=== PATIENT | female | born 1965 | race Caucasian/White ===

== ENCOUNTER 2021-03-14 11:49 | Inpatient (IN) | payer MEDICARE, MEDICAID ==
[~2021-03-14] VITALS: Ht 170.2 cm; Wt 95.3 kg
[2021-03-14 11:51] VITALS: BP 104/74
[2021-03-14] MEDS ORDERED: DRIZALMA SPRINK60 MG PO (11:56)
[2021-03-14 13:39] LABS: ABSOLUTE LYMPHOCYTES 0.6 thou/uL (0.8-5.3); ABSOLUTE MONOCYTES 0.1 thou/uL (0.0-1.2); ABSOLUTE NEUTROPHILS 4.1 thou/uL (1.6-8.1); BASOPHILS 0.6 %; EOSINOPHILS 0.5 %; HEMATOCRIT 35.3 % (37.0-47.0); HEMOGLOBIN 11.6 gm/dL (12.0-15.0); LYMPHOCYTES 11.9 %; MCH 28.1 pg (26.0-34.0); MCHC 32.9 g/dL (28.0-37.0); MCV 85.3 fL (80.0-100.0); MPV 8.4 fl. (7.2-11.1); NUCLEATED RBCS 0 /100WBC; PLATELET COUNT* 193 thou/uL (150-400); RBC 4.14 mil/uL (4.20-5.00); RDW-CV 14.7 % (10.5-14.5); WBC 4.9 thou/uL (4.0-11.0)
[2021-03-14 13:41] LABS: CALCIUM 7.7 mg/dL (8.5-10.1); CREATININE 0.9 mg/dL (0.6-1.3); POTASSIUM 3.9 mmol/L (3.5-5.1)
[2021-03-14 13:50] LABS: TOTAL BILIRUBIN 1.1 mg/dL (<0.1-1.0); TOTAL PROTEIN 6.9 g/dL (6.4-8.2)
[2021-03-14 17:53] LABS: URINE BILIRUBIN NEGATIVE (Negative); URINE BLOOD 1+ (Negative); URINE CLARITY CLEAR; URINE COLOR YELLOW; URINE GLUCOSE-RANDOM NEGATIVE (Negative); URINE KETONES NEGATIVE (Negative); URINE LEUKOCYTES-REFLEX NEGATIVE (Negative); URINE NITRITE-REFLEX NEGATIVE (Negative); URINE PROTEIN TRACE (Negative); URINE SPECIFIC GRAVITY <= 1.005 (1.005-1.030); URINE UROBILINOGEN 0.2 E.U./dl (0.2-1.0)
[2021-03-14 18:06] LABS: CASTS None Seen /LPF (None Seen); CRYSTALS None Seen /LPF (None Seen); MUCUS None Seen strn/LPF (None Seen); SQUAMOUS >10 Many /LPF (0-3); URINE RBC 0-2 Rare /HPF (0-2)
[2021-03-14 18:07] LABS: BACTERIA-REFLEX None Seen /HPF (None Seen); URINE WBC-REFLEX None Seen /HPF (0-5)
[2021-03-14 20:02] VITALS: BP 114/71
[2021-03-15 00:05] VITALS: BP 127/60
[2021-03-15 04:00] VITALS: BP 128/72
[2021-03-15 05:02] LABS: CALCIUM 7.8 mg/dL (8.5-10.1); CREATININE 0.9 mg/dL (0.6-1.3); PHOSPHORUS* 2.6 mg/dL (2.5-4.9); POTASSIUM 4.2 mmol/L (3.5-5.1)
[2021-03-15 08:00] VITALS: BP 130/76
[2021-03-15 12:03] LABS: % SATURATION 10 % (20-39); IRON 23 ug/dL (50-175)
--- NOTE | 2021-03-15 16:13 | CON ---
[address] [address] CONSULTATION Name: LUIS E ROJO Room: [place] [address] ADM IN M.R.#: [id number] Admission: 03/14/21 Attend Phys: Chika Branch Discharge: Date of : 69 Report #: [id number] THIS REPORT FOR: cc: [facility] - Clinic physician unknown [facility] - Clinic physician unknown Nguyen Varghese MD ~ cc: PCP, [facility] DATE OF CONSULTATION: 03/15/2021 Please note at the time of this dictation, the patient was seen and physically examined by myself. REASON FOR CONSULTATION: Nausea, vomiting and elevated LFTs. HISTORY OF PRESENT ILLNESS: This is a 55-year-old female who presented to the Emergency Room with nausea, vomiting and some diarrhea. She states she has been sick since 03/04/2021. 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 She states she is having a cough, headache, nausea, vomiting, diarrhea. She feels very weak and has a lot of body aches. She has noticed a change in her taste and has noted some bleeding from her hemorrhoids. The patient has been taking ibuprofen, Tylenol, cold and flu medication without any relief of her symptoms. The patient did have a COVID vaccine first shot 2 weeks ago at that time. In talking with the patient, she states she had a colonoscopy done several years ago. She thinks it was done at [facility] but does not recall with who. She states in the past she has been told that her liver enzymes have been elevated, but no workup has been performed. The patient states she has a longstanding history of constipation. She states that she may go a week without going and that she has to take a bunch of laxatives to get herself to go. Currently, she states her nausea and vomiting have subsided. She denied any bright red blood or coffee-ground emesis with her vomitus. ALLERGIES: No known drug allergies. MEDICATIONS: From home include duloxetine. PAST MEDICAL HISTORY: Hemorrhoids and elevated liver function test. PAST SURGICAL HISTORY: None. FAMILY HISTORY: Negative for any GI or female cancers. SOCIAL HISTORY: The patient does admit to heavy alcohol use up until 12 years ago, mainly hard liquor. She cannot give me a quantity of [place] [address] CONSULTATION Name: LUIS E ROJO Room: [address] IN [facility]#: [id number] Admission: 03/14/21 Attend Phys: Chika Branch Discharge: Date of : 69 Report #: [id number] She does do vaping and cigarettes about a pack a day. Denies any illegal drug use. REVIEW OF SYSTEMS: Twelve point review of systems is essentially negative except what is mentioned in the HPI. PHYSICAL EXAMINATION: VITAL SIGNS: Pulse 87, respirations 20, blood pressure 104/74, O2 sat 96. HEART: Regular rate and rhythm. LUNGS: Diminished bilaterally with crackles. ABDOMEN: Soft, positive bowel sounds in all 4 quadrants with generalized tenderness throughout and she does have somewhat of a distended abdomen, which she states is normal for her. LABORATORY DATA: Hemoglobin is 11.6, white count is 4.9, platelets 193. GFR is 65, total bilirubin is 1.1, alkaline phosphatase 77, ALT 1882, AST is 2483. Lipase is normal at 212. COVID is negative. CT of the abdomen and pelvis just shows hepatic steatosis, cholelithiasis and constipation. Also noted are bilateral ground ground-glass pneumonia. IMPRESSION: 1. Elevated liver function tests. 2. Nausea and vomiting, resolved. 3. Constipation. 4. Hepatic steatosis. 5. Anemia, mild. 6. Previous history of alcohol abuse, quit 12 years ago. 7. Pneumonia bilaterally. PLAN: 1. We will check labs, acute hepatitis panel, alpha 1 antitrypsin, AFP, ceruloplasmin, GARRY, AMA, ASMA, B12, iron studies, ferritin. 2. Obtain an abdominal ultrasound. 3. Depending on the results of the above, the patient may need a liver biopsy for definitive evaluation of her liver. Further recommendations to be made after Dr. Varghese sees the patient later today. Thank you for allowing us to participate in this patient's care. Please do not hesitate to call if there are any questions regarding this. <ELECTRONICALLY SIGNED> By: Nguyen Varghese MD 03/15/21 1613 0801 [id number] Varghese MD /nt
[2021-03-15 16:45] VITALS: BP 132/85
[2021-03-15 22:39] VITALS: BP 132/85
[2021-03-15 22:52] VITALS: BP 125/74
[2021-03-16 00:41] VITALS: BP 124/83
[2021-03-16 02:06] LABS: HEPATITIS B SURFACE AG Negative (Negative)
--- NOTE | 2021-03-16 02:44 | NUR ---
ASSUMED CARE OF PT AT 2245. PT IS ALERT AND OREINTED. VSS. PERRLA. NO COMPLAINTS OF PAIN. PT IS ON ROOM AIR. PT IS IN SINUS RYTHM ON THE TELEMETRY. PT IS RESTING COMFORTABLY IN BED. RESPIRATIONS ARE EVEN AND NONLABORED. WILL CONTINUE TO MONITOR PT.
[2021-03-16 04:25] VITALS: BP 127/89
[2021-03-16 07:20] VITALS: BP 122/73
[2021-03-16 09:08] LABS: CERULOPLASMIN 29.7 mg/dL (19.0-39.0)
[2021-03-16 12:44] LABS: ALBUMIN 2.6 g/dL (3.4-5.0); CALCIUM 7.9 mg/dL (8.5-10.1); CREATININE 0.9 mg/dL (0.6-1.3); POTASSIUM 4.9 mmol/L (3.5-5.1); TOTAL BILIRUBIN 0.7 mg/dL (<0.1-1.0); TOTAL PROTEIN 6.1 g/dL (6.4-8.2)
[2021-03-16 12:45] VITALS: BP 116/68
[2021-03-16 16:22] VITALS: BP 125/79
--- NOTE | 2021-03-16 16:48 | NUR ---
PT REMAINED ALERT AND ORIENTED. PT RESTING IN BED. ANXIETY MEDS GIVEN ORDERED. FALL RISK PRECAUTIONS IN PLACE. HOURLY ROUNDING COMPLETED. HEART MONITORED. CALL LIGHT WITHIN REACH.
[2021-03-16 19:45] VITALS: BP 112/65
--- NOTE | 2021-03-16 23:45 | NUR ---
ASSUMED CARE OF PT AT 1900. PT IS ALERT AND ORIENTED. VSS. PERRLA. NO COMPLAINTS OF PAIN. PT IS IN SINUS RYTHM ON THE TELEMETRY. PT IS RESTING COMFORTABLY IN BED. RESPIRATIONS ARE EVEN AND NONLABORED. WILL CONTINUE TO MONITOR PT.
[2021-03-17 00:10] VITALS: BP 134/64
[2021-03-17 04:35] VITALS: BP 137/72
--- NOTE | 2021-03-17 05:26 | NUR ---
PATIENT HAS SLEPT OFF AND ON DURING THE NIGHT, BUT RESTLESS AT TIMES. 02 INCREASED TO 4L VIA NASAL CANNULA D/T DECREASED OXYGEN SATURATION D/T PATIENT TAKING OFF HER OXYGEN. MEDICATIONS GIVEN ORDERED AND CHARTED. PATIENT INSTRUCTED TO USE CALL LIGHT WHEN NEEDING ASSISTANCE. HOURLY ROUNDS MADE. WILL CONTINUE WITH PLAN OF CARE AND NURSING TO MONITOR.
[2021-03-17 06:18] LABS: ALBUMIN 2.5 g/dL (3.4-5.0); CALCIUM 7.9 mg/dL (8.5-10.1); CREATININE 0.8 mg/dL (0.6-1.3); POTASSIUM 3.9 mmol/L (3.5-5.1); TOTAL BILIRUBIN 0.6 mg/dL (<0.1-1.0); TOTAL PROTEIN 5.7 g/dL (6.4-8.2)
[2021-03-17 08:30] VITALS: BP 114/81
--- NOTE | 2021-03-17 17:19 | NUR ---
PATIENT HAS BEEN A&OX4 HOWEVER CONFUSED AT TIMES DURING THIS SHIFT. PATIENT HAS BEEN FATIGUED AND SLEPT MOST OF SHIFT AND SEEMS TO BE CONFUSED RIGHT WHEN BEING WAKEN UP. PATIENT REQUIRED PRN ANXIETY MEDICATION X1 THIS SHIFT PER HER REQUEST, WHICH WAS AFFECTIVE. PATIENT IS ON O2@4L NASAL CANNULA AND SOMETIMES REQUIRES NEEDING REMINDED TO LEAVE CANNULA IN NOSE. PATIENT RECEIVED FIRST DOSE OF REMDESEVIR TODAY AND WAS CONSULTED BY DR. MARTINEZ (PULMONOLOGY). MEDICATIONS ADMINISTERED ORDERED. BED ALARM ON FOR PATIENT SAFETY. CALL LIGHT AND FREQUENTLY USED ITEMS WITHIN REACH.
[2021-03-17 19:30] VITALS: BP 113/68
[2021-03-17 19:43] VITALS: BP 138/80
[2021-03-18 02:34] VITALS: BP 121/77
--- NOTE | 2021-03-18 03:56 | NUR ---
PT SLEPT ON AND OFF THIS SHIFT. ASSESSMENT DOCUMENTED. MEDS GIVEN PER E-MAR. IV PATENT. NO REPORTS OF PAIN. PT HAD INCREASE IN CONFUSION THIS SHIFT, CLIMBING OUT OF BED, FORGETTING TO HIT CALL LIGHT. PT REORIENTED, FALL PRECAUTIONS IN PLACE. PT UP TO BSC SEVERAL TIMES THIS SHIFT. WILL CONTINUE WITH PLAN OF CARE.
[2021-03-18 04:57] VITALS: BP 138/67
[2021-03-18 08:00] VITALS: BP 108/67
--- NOTE | 2021-03-18 15:24 | NUR ---
Covid positive. Pt on 2L o2. GI following for EGD, possible colon. ?withdrawing. Pt confused, CM left VM for Pt's son to obtain hx, awaiting call back. Per chart review, Pt is normally A&O. Independent. CM to continue to try and reach son regarding history.
[2021-03-18 20:30] VITALS: BP 133/66
[2021-03-18 21:05] LABS: ANA INTERPRETATION Negative (())
[2021-03-19] VITALS: BP 114/65
[2021-03-19 04:00] VITALS: BP 104/56
--- NOTE | 2021-03-19 06:05 | NUR ---
PT SLEPT MOST OF SHIFT. ASSESSMENT DOCUMENTED. MEDS GIVEN PER E-MAR. IV PATENT. PT STILL FORGETFUL AND CLIMBS OUT OF BED, BUT IS EASIER TO REDIRECT THIS SHIFT. NO REPORTS OF PAIN. ISOLATION MAINTIANED. WILL CONTINUE WITH PLAN OF CARE.
[2021-03-19 07:54] LABS: HEMATOCRIT 32.6 % (37.0-47.0); HEMOGLOBIN 10.6 gm/dL (12.0-15.0); MCH 27.8 pg (26.0-34.0); MCHC 32.5 g/dL (28.0-37.0); MCV 85.6 fL (80.0-100.0); MPV 8.2 fl. (7.2-11.1); NUCLEATED RBCS 0 /100WBC; PLATELET COUNT* 282 thou/uL (150-400); RBC 3.81 mil/uL (4.20-5.00); RDW-CV 15.2 % (10.5-14.5); WBC 5.9 thou/uL (4.0-11.0)
[2021-03-19 08:12] LABS: ALBUMIN 2.7 g/dL (3.4-5.0); CALCIUM 7.9 mg/dL (8.5-10.1); CREATININE 0.7 mg/dL (0.6-1.3); POTASSIUM 3.3 mmol/L (3.5-5.1); TOTAL BILIRUBIN 0.6 mg/dL (<0.1-1.0); TOTAL PROTEIN 6.2 g/dL (6.4-8.2)
[2021-03-19 08:30] VITALS: BP 141/71
[2021-03-19 08:38] LABS: PHOSPHORUS* 4.2 mg/dL (2.5-4.9)
[2021-03-19 08:41] LABS: APTT 23.9 Seconds (25.0-31.3); PROTIME 11.1 Seconds (9.20-11.50)
[2021-03-19 09:12] LABS: ABSOLUTE EOSINOPHILS 0.1 thou/uL (0.0-0.7); ABSOLUTE LYMPHOCYTES 1.2 thou/uL (0.8-5.3); ABSOLUTE MONOCYTES 0.5 thou/uL (0.0-1.2); ANISOCYTOSIS 1+; PLATELET ESTIMATE ADEQUATE; POIKILOCYTOSIS 1+
[2021-03-19 11:58] VITALS: BP 141/73
--- NOTE | 2021-03-19 15:09 | NUR ---
Anticipate dc in a few days. On 3L. Confused. GI w/up pending.
[2021-03-19 15:49] VITALS: BP 140/80
--- NOTE | 2021-03-19 16:36 | 2DMMODE ---
[place] [address] 2 D/M-MODE ECHOCARDIOGRAM Name: LUIS E ROJO Osorio Room: [address] IN .R.#: [id number] Admission: 03/14/21 Attend Phys: Keegan Olivera Discharge: Date of : 69 Date of Service: 03/19/21 1636 Report #: [id number] THIS REPORT FOR: cc: [facility] - Clinic physician unknown [facility] - Clinic physician unknown Yoel Machado MD [facility] ~ APPROVED REPORT Study performed: 03/19/2021 10:45:44 EXAM: Comprehensive 2D, Doppler, and color-flow Echocardiogram Patient Location: In-Patient Room #: [facility] Status: routine BSA: 2.07 HR: 71 bpm BP: 104/56 mmHg Rhythm: NSR Other Information Study Quality: Good Indications Dyspnea 2D Dimensions IVSd: 10.41 (7-11mm) LVOT Diam: 20.58 (18-24mm) LVDd: 41.98 mm PWd: 8.50 (7-11mm) Ascending Ao: 33.08 (22-36mm) LVDs: 27.66 (25-40mm) Aortic Root: 31.97 mm Aortic Valve AoV Peak Wilian.: 1.45 m/s AO Peak Gr.: 8.46 mmHg LVOT Max P.29 mmHg AO Mean Gr.: 5.26 mmHg LVOT Mean P.96 mmHg LVOT Max V: 1.25 m/s AO V2 VTI: 28.72 cm LVOT Mean V: 0.95 m/s ADRIÁN (VTI): 2.85 cm2 LVOT V1 VTI: 24.61 cm Mitral Valve E/A Ratio: 0.90 MV Decel. Time: 232.06 ms MV E Max Wilian.: 1.03 m/[place] [address] 2 D/M-MODE ECHOCARDIOGRAM Name: LUIS E ROJO Room: [address] IN .R.#: [id number] Admission: 03/14/21 Attend Phys: Keegan Olivera Discharge: Date of : 69 Date of Service: 03/19/21 1636 Report #: [id number] MV PHT: 67.30 ms MVA (PHT): 3.27 cm2 TDI E/Lateral E': 12.88 E/Medial E': 11.44 Medial E' Wilian.: 0.09 m/s Lateral E' Wilian.: 0.08 m/s Pulmonary Valve PV Peak Wilian.: 1.60 m/s PV Peak Gr.: 10.25 mmHg Tricuspid Valve RAP Estimate: 5.00 mmHg TR Peak Gr.: 28.66 mmHg RVSP: 33.00 mmHg PA Pressure: 33.00 mmHg Left Ventricle The left ventricle is normal size. There is normal LV segmental wall motion. There is normal left ventricular wall thickness. Left ventricular systolic function is normal. LVEF is 55-60%. Grade I - abnormal relaxation pattern. Right Ventricle The right ventricle is normal size. The right ventricular systolic function is normal. Atria The left atrium size is normal. The right atrium size is normal. Aortic Valve Mild aortic valve sclerosis. No aortic regurgitation is present. There is no aortic valvular stenosis. Mitral Valve The mitral valve is normal in structure. There is no mitral valve regurgitation noted. No evidence of mitral valve stenosis. Tricuspid Valve The tricuspid valve is normal in structure. Trace tricuspid regurgitation. The RVSP is 35-40 mmHg. Pulmonic Valve The pulmonary valve is normal in structure. There is no pulmonic [place]vular [place] [address] 2 D/M-MODE ECHOCARDIOGRAM Name: LUIS E ROJO Room: [address] IN [facility]#: [id number] Admission: 03/14/21 Attend Phys: Keegan Olivera Discharge: Date of : 69 Date of Service: 03/19/21 1636 Report #: [id number] Great Vessels The aortic root is normal in size. IVC is normal in size and collapses >50% with inspiration. Pericardium There is no pericardial effusion. <Conclusion> The left ventricle is normal size. There is normal left ventricular wall thickness. Left ventricular systolic function is normal. LVEF is 55-60%. Grade I - abnormal relaxation pattern. Mild aortic valve sclerosis. Trace tricuspid regurgitation. The RVSP is 35-40 mmHg. IVC is normal in size and collapses >50% with inspiration. <ELECTRONICALLY SIGNED> By: Yoel Machado MD, FACC 03/19/21 1636 1636 1636 Yoel Machado MD, FACC /INF
[2021-03-19 20:00] VITALS: BP 135/73
[2021-03-20 00:27] VITALS: BP 134/72
--- NOTE | 2021-03-20 03:53 | NUR ---
PT SLEPT MOST OF SHIFT. ASSESSMENT DOCUMENTED. MEDS GIVEN PER E-MAR. IV PATENT. PAIN AND NAUSEA MEDS GIVEN PER E-MAR WITH RELIEF. PT HAD PERIODS OF CLARITY, BUT THEN WOULD GET CONFUSED AGAIN AND START CLIMBING OUT OF BED. PT ABLE TO TALK TO FAMILY THIS SHIFT. FALL PRECAUTIONS IN PLACE. WILL CONTINUE WITH PLAN OF CARE.
[2021-03-20 04:11] VITALS: BP 129/58
[2021-03-20 06:06] LABS: ABSOLUTE EOSINOPHILS 0.1 thou/uL (0.0-0.7); ABSOLUTE MONOCYTES 0.6 thou/uL (0.0-1.2); ABSOLUTE NEUTROPHILS 4.5 thou/uL (1.6-8.1); BASOPHILS 0.3 %; EOSINOPHILS 1.3 %; HEMATOCRIT 30.9 % (37.0-47.0); HEMOGLOBIN 10.2 gm/dL (12.0-15.0); LYMPHOCYTES 15.4 %; MCH 28.2 pg (26.0-34.0); MCV 85.4 fL (80.0-100.0); MONOCYTES 10.3 %; MPV 7.8 fl. (7.2-11.1); NUCLEATED RBCS 0 /100WBC; PLATELET COUNT* 292 thou/uL (150-400); POLYS 72.7 %; RBC 3.62 mil/uL (4.20-5.00); RDW-CV 15.1 % (10.5-14.5); WBC 6.2 thou/uL (4.0-11.0)
[2021-03-20 06:23] LABS: ALBUMIN 2.7 g/dL (3.4-5.0); CALCIUM 7.9 mg/dL (8.5-10.1); CREATININE 0.7 mg/dL (0.6-1.3); POTASSIUM 3.1 mmol/L (3.5-5.1); TOTAL BILIRUBIN 0.7 mg/dL (<0.1-1.0); TOTAL PROTEIN 6.2 g/dL (6.4-8.2)
[2021-03-20 08:15] VITALS: BP 107/63
[2021-03-20 11:08] LABS: HCV QUANT BY PCR HCV Not Detected IU/mL (())
[2021-03-20 12:00] VITALS: BP 117/80
--- NOTE | 2021-03-20 15:56 | NUR ---
Pt down to 1L. Continues to have confusion. Started Seroquel. Anticipate dc tomorrow.
[2021-03-20 16:21] VITALS: BP 121/79
--- NOTE | 2021-03-20 19:09 | NUR ---
PATIENT RESTING IN BED. PATIENT IS UP STANDBY ASSIST. PATIENT HAS BEEN IMPULSIVE, BED ALARM ON. PATIENT ANXIOUS TODAY, ATIVAN GIVEN. PATIENT HAS BEEN CONFUSED AT TIMES, BUT COOPERATIVE AND ABLE TO BE REORIENTED. PATIENT DENIES ANY PAIN. PATIENT HAS OXYGEN ON AT 1L/NC, DOES DESAT ON ROOM AIR. PATIENT HAD POTASSIUM REPLACED PER PROTOCOL. PATIENT DENIES ANY NEEDS AT THIS TIME. CALL LIGHT WITHIN REACH.
[2021-03-20 20:24] VITALS: BP 105/69
[2021-03-21 01:19] VITALS: BP 102/60
[2021-03-21 05:06] LABS: ABSOLUTE EOSINOPHILS 0.1 thou/uL (0.0-0.7); ABSOLUTE LYMPHOCYTES 1.1 thou/uL (0.8-5.3); ABSOLUTE MONOCYTES 0.6 thou/uL (0.0-1.2); ABSOLUTE NEUTROPHILS 4.8 thou/uL (1.6-8.1); BASOPHILS 0.2 %; EOSINOPHILS 1.2 %; HEMATOCRIT 33.8 % (37.0-47.0); HEMOGLOBIN 10.9 gm/dL (12.0-15.0); LYMPHOCYTES 16.7 %; MCH 27.8 pg (26.0-34.0); MCHC 32.3 g/dL (28.0-37.0); MONOCYTES 9.2 %; MPV 7.8 fl. (7.2-11.1); NUCLEATED RBCS 0 /100WBC; PLATELET COUNT* 344 thou/uL (150-400); POLYS 72.7 %; RBC 3.93 mil/uL (4.20-5.00); RDW-CV 15.5 % (10.5-14.5); WBC 6.6 thou/uL (4.0-11.0)
[2021-03-21 05:07] VITALS: BP 103/62
[2021-03-21 05:25] LABS: ALBUMIN 2.9 g/dL (3.4-5.0); CALCIUM 8.2 mg/dL (8.5-10.1); CREATININE 0.7 mg/dL (0.6-1.3); POTASSIUM 3.8 mmol/L (3.5-5.1); TOTAL BILIRUBIN 0.7 mg/dL (<0.1-1.0); TOTAL PROTEIN 6.6 g/dL (6.4-8.2)
[2021-03-21 08:00] VITALS: BP 150/62
--- NOTE | 2021-03-21 09:21 | NUR ---
PT IS ABLE TO COMMUNICATE HER NEEDS TO STAFF EFFECTIVELY. CURRENT PAIN MEDICATION REGIMEN HAS BEEN ADEQUATE FOR CONTROLLING HER PAIN UP TO THIS TIME. SHE CAN BECOME VERY ANXIOUS AT TIMES; MEDICATION GIVEN PER MD ORDER. POSSIBLE DISCHARGE TODAY.
[2021-03-21 12:00] VITALS: BP 111/65
--- NOTE | 2021-03-21 15:04 | NUR ---
Anticipate dc tomorrow. Pt remains anxious. No o2. CM left VM for Pt's son, await call back
[2021-03-21 16:26] VITALS: BP 115/63
[2021-03-21 19:45] VITALS: BP 140/74
[2021-03-22 00:15] VITALS: BP 131/89
--- NOTE | 2021-03-22 01:58 | NUR ---
THIS RN HAS REPLACED O2 SENSOR 4X THIS SHIFT SO FAR. PT KEEPS TAKING IT AND HER ENTIRE TELE MONITOR OFF DESPITE ENCOURAGEMENT TO LEAVE IT ON, SHE IS ALSO COMING OUT IN HALLS WITHOUT MASK AND HAS BEEN REMINDED SHE CANNOT DO THIS DUE TO HER CONTAGIOUS STATUS. SHE IS COMPLAINING OF HER ROOM BEING COLD AND THE TEMP HAS BEEN TURNED TO THE WARMEST SETTING AND 3 WARM BLANKETS WERE PROVIDED. SHE HAS PULLED OUT HER IV WELL.
[2021-03-22 04:00] VITALS: BP 115/67
[2021-03-22 04:50] LABS: ALBUMIN 3.6 g/dL (3.4-5.0); CREATININE 0.7 mg/dL (0.6-1.3); TOTAL PROTEIN 8.1 g/dL (6.4-8.2)
[2021-03-22 05:12] LABS: POTASSIUM 4.9 mmol/L (3.5-5.1)
--- NOTE | 2021-03-22 05:42 | NUR ---
PT HAS BEEN UP MOST OF THE NIGHT, SHE HAS BEEN CONFUSED, TAKING OFF HER TELEMONITOR AND COMING OUT OF HER ROOM DESPITE REQUESTS FROM STAFF TO STAY IN THE ROOM. SHE REMOVED HER IV, WHEN QUESTIONED ABOUT IT SHE DENIED THAT SHE DID IT. PT IS AO X2 PERSON AND TIME. SHE SATS >90% ON ROOM AIR AND REPORTS A COUGH WITH PRODUCTION, I HAVE NOT HEARD HER COUGH THIS SHIFT. PT STATES SHE IS GOING TO CALL FAMILY TO COME GET HER TODAY AND SHE WILL BE LEAVING. PT TAKES PILLS ORALLY WELL. PO FLUID INTAKE IS GOOD. CALL LIGHT IN REACH, PT DOES NOT USE APPROPREATELY
[2021-03-22 08:00] VITALS: BP 129/83
[2021-03-22 12:00] VITALS: BP 105/67
--- NOTE | 2021-03-22 14:09 | NUR ---
Anticipate dc in 1-2 days. Continued confusion, started seroquel yesterday. ?steroid induced psychosis. No needs at dc.
[2021-03-22 16:00] VITALS: BP 112/62
[2021-03-22 19:45] VITALS: BP 120/63
[2021-03-23 00:09] VITALS: BP 121/64
[2021-03-23 04:22] VITALS: BP 103/54
--- NOTE | 2021-03-23 05:48 | NUR ---
PT AO X2 PERSON AND PLACE THIS SHIFT, SHE IS VERY CONFUSED AND EASLIY REDIRECTABLE BUT FOR JUST A SHORT TIME. STAFF REPORTED PT STATING HER SON WAS SITTING IN CORNER OF THE ROOM THIS AM. SHE WAS CALLING THE NETWORK [employer] AND ORDERING FOOD. SHE DID START PO ATIVAN AND WAS ADMINISTERED AMBIEN FOR SLEEP. SHE DID STAY IN BED A LITTLE MORE BUT WAS STILL PULLING TELEMETRY BOX OFF AND TRYING TO COME INTO THE WHEELER. PT IS STILL ON RA SATTING APPROPRIATELY, REPORTING COUGH WITH BROWN SPUTUM.
[2021-03-23 05:59] LABS: ABSOLUTE LYMPHOCYTES 1.6 thou/uL (0.8-5.3); ABSOLUTE MONOCYTES 0.9 thou/uL (0.0-1.2); ABSOLUTE NEUTROPHILS 4.5 thou/uL (1.6-8.1); BASOPHILS 0.7 %; EOSINOPHILS 0.5 %; HEMATOCRIT 36.3 % (37.0-47.0); HEMOGLOBIN 11.8 gm/dL (12.0-15.0); LYMPHOCYTES 22.7 %; MCH 27.8 pg (26.0-34.0); MCHC 32.4 g/dL (28.0-37.0); MCV 85.7 fL (80.0-100.0); MONOCYTES 12.5 %; MPV 8.1 fl. (7.2-11.1); NUCLEATED RBCS 0 /100WBC; PLATELET COUNT* 374 thou/uL (150-400); POLYS 63.6 %; RBC 4.24 mil/uL (4.20-5.00); RDW-CV 15.5 % (10.5-14.5)
[2021-03-23 06:42] LABS: ALBUMIN 3.6 g/dL (3.4-5.0); CALCIUM 8.8 mg/dL (8.5-10.1); CREATININE 0.8 mg/dL (0.6-1.3); POTASSIUM 3.9 mmol/L (3.5-5.1); TOTAL BILIRUBIN 0.8 mg/dL (<0.1-1.0); TOTAL PROTEIN 7.5 g/dL (6.4-8.2)
[2021-03-23 09:00] VITALS: BP 96/58
[2021-03-23] MEDS ORDERED: IRON325 PO (11:24)
[2021-03-23 12:11] VITALS: BP 92/48
[2021-03-23 12:39] VITALS: BP 92/48
--- NOTE | 2021-03-23 15:28 | NUR ---
PT. AOX3, CONFUSED AT TIMES, VSS, CALL LIGHT AND PERSONAL BELONGINGS PLACED WITHIN REACH. DC ORDERS RECEIVED. DC PACKET EXPLAINED, VERBALIZED UNDERSTANDING. PT. LEFT BY WHEELCHAIR WITH PERSONAL BELONGINGS, AND PICKED UP BY SON. PT. IN STABLE CONDITION AT TIME OF LEAVING UNIT.
== END 2021-03-23 14:15 | disposition home or self-care (01) | DRG 177 ==
LOC: M.ERS 11:49 → M.TBA-ER 15:54 → M.ERS 15:54 → M.TBA-ER 18:20 → M.ORTHSURG 23:20 → M.TBA-ER 03-15 07:19 → M.ORTHSURG 03-15 22:12
PROVIDERS: Internal Medicine; Internal Medicine Critical Care Medicine; Internal Medicine Gastroenterology; Nurse Practitioner Adult Health; Physician Assistant; ADMIT Internal Medicine; ATTEND Internal Medicine
PROC: XW033E5 Introduction of Remdesivir Anti-infective into Peripheral Vein, Percutaneous Approach, New Technology Group 5 (ICD-10-PCS; principal; 2021-03-17)
DX: U07.1 COVID-19 (principal); J12.82 Pneumonia due to coronavirus disease 2019; J96.01 Acute respiratory failure with hypoxia; K92.2 Gastrointestinal hemorrhage, unspecified; D62 Acute posthemorrhagic anemia; B17.10 Acute hepatitis C without hepatic coma; E86.0 Dehydration; K64.9 Unspecified hemorrhoids; K59.00 Constipation, unspecified; F17.210 Nicotine dependence, cigarettes, uncomplicated; F32.9 Major depressive disorder, single episode, unspecified; F10.11 Alcohol abuse, in remission; T38.0X5A Adverse effect of glucocorticoids and synthetic analogues, initial encounter; K76.0 Fatty (change of) liver, not elsewhere classified; Y92.89 Other specified places as the place of occurrence of the external cause; Z79.899 Other long term (current) drug therapy